=== PATIENT | male | born 1965 | race Caucasian/White ===

== ENCOUNTER 2018-09-20 12:00 | Outpatient (CLI) ==
--- NOTE | 2018-09-20 13:36 | DI ---
EXAM: Two views of the chest. History: Chest pain, smoking Comparison: None available. Findings: Heart size is borderline enlarged. No focal consolidation. No appreciable pleural fluid and no pneumothorax. No acute osseous abnormalities. Impression: No acute cardiopulmonary process
== END 2018-09-20 12:01 | disposition home or self-care (01) ==
LOC: LAB 12:00
PROVIDERS: ATTEND Internal Medicine
DX: E78.5 Hyperlipidemia, unspecified (principal); E11.9 Type 2 diabetes mellitus without complications; Z87.891 Personal history of nicotine dependence; Z12.5 Encounter for screening for malignant neoplasm of prostate
CPT/HCPCS: 36415; 80053; 80061; 80074; 83036; 84439; 84443; 85025

== ENCOUNTER 2019-01-31 12:20 | Outpatient (CLI) | END 2019-01-31 12:21 | disposition home or self-care (01) | LOC: LAB 12:20 | PROVIDERS: ATTEND Internal Medicine | DX: E78.5 Hyperlipidemia, unspecified (principal); E11.9 Type 2 diabetes mellitus without complications; I10 Essential (primary) hypertension | CPT/HCPCS: 36415; 80053; 80061; 83036; 84439; 84443; 85025 ==

== ENCOUNTER 2019-04-29 09:54 | Outpatient (CLI) ==
--- NOTE | 2019-04-29 12:36 | DI ---
EXAM: Right ankle. Three-view HISTORY: Right ankle pain COMPARISON: None FINDINGS: The bones are normal. Ankle mortise is symmetric. No focal soft tissue abnormality. IMPERSSION: Normal examination.
== END 2019-04-29 09:55 | disposition home or self-care (01) ==
LOC: RAD 09:54
PROVIDERS: ATTEND Internal Medicine
DX: E78.5 Hyperlipidemia, unspecified (principal); E11.9 Type 2 diabetes mellitus without complications; M25.571 Pain in right ankle and joints of right foot
CPT/HCPCS: 36415; 80053; 80061; 83036; 84443; 85025